=== PATIENT | male | born 1960 | race Caucasian/White ===

== ENCOUNTER 2016-09-19 10:35 | Day surgery (SDC) | payer OTHER ==
[~2016-09-19] VITALS: Ht 172.7 cm; Wt 102.9 kg
[2016-09-19 11:34] LABS: HEMATOCRIT 47.1 % (38.0-50.0); MCH 29.3 PG (29.0-34.0); MCHC 34.2 G/DL (30.0-36.0); MCV 85.8 FL (86-99); MEAN PLAT.VOLUME 9.7 uM^3 (9.0-12.4); PLATELET COUNT 209 K/uL (156-360); RBC DIS.WIDTH-SD 37.6 % (39-53); RED BLOOD COUNT 5.49 M/uL (4.00-5.50); WHITE BLOOD COUNT 7.9 K/uL (4.1-10.2)
[2016-09-19 11:39] LABS: CHLORIDE 105 mEq/L (99-109); POTASSIUM 4.3 mEq/L (3.7-5.4); SODIUM 142 mEq/L (136-147)
[2016-09-19 11:41] LABS: GLUCOSE 87 mg/dL (70-99)
[2016-09-19 11:43] LABS: ANION GAP 8 MEQ/L (2-14); TOTAL BILIRUBIN 1.1 mg/dL (0.0-1.0)
[2016-09-19 11:45] LABS: ALKALINE PHOSPHATASE 104 IU/L (3-129)
[2016-09-19 11:46] LABS: UREA NITROGEN (BUN) 13 mg/dL (9-23)
[2016-09-19 12:00] LABS: GFR ESTIMATE (CALCULATED) > 59 mL/min/
[2016-09-19 13:07] LABS: ADD MIUA? NO; BILIRUBIN NEGATIVE; BLOOD NEGATIVE; COLOR YELLOW ((YELLOW)); GLUCOSE (STRIP) NEGATIVE; KETONES NEGATIVE; LEUKOCYTES NEGATIVE; NITRITE NEGATIVE; PROTEIN (STRIP) NEGATIVE; SPECIFIC GRAVITY 1.014 (1.000-1.030); UCUL ADDED? NO; UROBILINOGEN 0.2 MG/DL (0.2-1.0)
[2016-09-19 13:17] LABS: LIPASE 36 U/L (1.0-51.0)
[2016-09-19] MEDS ORDERED: INDERAL40 MG PO (13:20)
[2016-09-19] MEDS ORDERED: ASPIR 8181 M1 PO (13:21)
[2016-09-19] MEDS ORDERED: CEROVITE SENIO1 EACH PO (13:22)
[2016-09-19] MEDS ORDERED: LEVITRA20 MG PO (18:11)
[2016-09-19] MEDS ORDERED: CALCIUM + VITA1 EAC2 PO (18:11)
[2016-09-20] VITALS (7 sets, daily range): BP systolic 174–190; BP diastolic 84–90
[2016-09-21 04:26] VITALS: BP 170/84
[2016-09-21 06:58] LABS: HEMATOCRIT 40.8 % (38.0-50.0); MCH 29.4 PG (29.0-34.0); MCHC 34.3 G/DL (30.0-36.0); MCV 85.5 FL (86-99); MEAN PLAT.VOLUME 9.8 uM^3 (9.0-12.4); PLATELET COUNT 171 K/uL (156-360); RBC DIS.WIDTH-CV 12.1 % (11.8-14.6); RBC DIS.WIDTH-SD 37.7 % (39-53); RED BLOOD COUNT 4.77 M/uL (4.00-5.50)
[2016-09-21 07:05] LABS: WHITE BLOOD COUNT 12.3 K/uL (4.1-10.2)
[2016-09-21 07:20] LABS: ALKALINE PHOSPHATASE 83 IU/L (3-129); ANION GAP 9 MEQ/L (2-14); CHLORIDE 102 MEQ/L (99-109); GFR ESTIMATE (CALCULATED) > 59 mL/min/; SAMPLE HEMOLYSIS CHECK 0; SAMPLE ICTERIC CHECK 0; SAMPLE LIPEMIA CHECK 0; SODIUM 137 MEQ/L (136-147); UREA NITROGEN (BUN) 16 mg/dL (9-23)
[2016-09-21 07:24] LABS: GLUCOSE 147 mg/dL (70-99)
[2016-09-21 08:00] VITALS: BP 171/81
[2016-09-21] MEDS ORDERED: DILAUDID2 MG PO (11:07)
== END 2016-09-21 11:28 | disposition home or self-care (01) ==
LOC: EME 10:35 → 2SOUTH 17:24 → EME 17:24 → 2EAST 17:24 → SDC 23:45 → 2EAST 09-20 00:01 → 2SOUTH 09-20 00:01 → 2EAST 09-20 00:01
PROVIDERS: Physician Assistant Surgical
PROC: 0FT44ZZ Resection of Gallbladder, Percutaneous Endoscopic Approach (ICD-10-PCS; principal; 2016-09-20)
DX: K81.0 Acute cholecystitis (principal); K81.1 Chronic cholecystitis; I10 Essential (primary) hypertension; Z79.82 Long term (current) use of aspirin
CPT/HCPCS: 74177; 80053; 81003; 83690; 85027; 88304; 99281; 99285; G0378; J0131; J0690; J1100; J1170; J1885; J2250; J2270; J2405; J2710; J3010; J7030; J7120